=== PATIENT | male | born 1950 | race Caucasian/White ===

== ENCOUNTER → 2018-07-08 07:27 | Outpatient (CLI) | payer MEDICARE, MEDICAID ==
[2013-04-15 17:29] VITALS: BMI 27.0
[~2018-07-08 07:27] MED LIST: ASPIRIN 81 MG E81 MG PO; PLAVIX75 MG PO; PRAVACHOL40 MG PO; PRILOSEC20 MG
== END | disposition home or self-care (01) ==
LOC: D.CT 07:27
DX: R77.2 Abnormality of alphafetoprotein (principal)

== ENCOUNTER 2020-02-12 18:15 | Emergency (ER) | payer MEDICARE, MEDICAID ==
[~2020-02-12] VITALS: Ht 188 cm; Wt 90.9 kg
[2020-02-12 18:18] VITALS: Ht 188 cm; Wt 90.9 kg
[2020-02-12 18:48] LABS: BASOPHILS 0.2 % (0-2); EOSINOPHILS 0.3 % (0-7); HEMATOCRIT 42.6 % (42.0-54.0); HEMOGLOBIN 14.4 g/dL (13.5-17.5); IMMATURE GRANULOCYTES 0.2 % (0-5); LYMPHOCYTES 21.2 % (15-50); MCH 32.2 pg (26.0-34.0); MCHC 33.8 g/dL (31.0-37.0); MCV 95.3 fL (80.0-100.0); MEAN PLATELET VOLUME 9.2 fL (7.4-10.4); MONOCYTES 8.9 % (2-11); NEUTROPHILS 69.2 % (40-80); RBC 4.47 10x6/uL (4.20-6.10); RDW 12.6 % (11.5-14.5); WBC 11.6 10x3/uL (4.8-10.8)
[2020-02-12 18:53] LABS: APTT 26.5 SECONDS (22.8-39.4); INR 0.98 (0.85-1.17); PROTIME 12.9 SECONDS (11.6-15.0)
[2020-02-12 18:54] LABS: PLATELET COUNT 167 10x3/uL (130-400)
[2020-02-12 18:56] LABS: CALC OSMOLALITY 278 mosm/kg (275-300); CALCIUM 8.5 mg/dL (8.5-10.1); CARBON DIOXIDE 27.2 mmol/L (21.0-32.0); CHLORIDE - SERUM 104 mmol/L (98-107); CREATININE - SERUM 1.1 mg/dL (0.6-1.3); SODIUM 137 mmol/L (136-145); UREA NITROGEN 14 mg/dL (7-18); eGFR NON AFRICAN AMERICAN 71 mL/min (90-120)
[2020-02-12 19:01] LABS: GLUCOSE 175 mg/dL (74-106)
[2020-02-12 19:10] LABS: ALBUMIN 3.7 g/dL (3.4-5.0); ALKALINE PHOSPHATASE 58 U/L (30-120); ALT (SGPT) 27 U/L (10-68); CKMB 1.5 U/L (0.0-3.6); CREATINE KINASE 170 UL (21-232); LIPASE 164 U/L (73-393); MAGNESIUM - SERUM 2.1 mg/dL (1.8-2.4); PROTEIN - SERUM 6.9 g/dL (6.4-8.2); TROPONIN-I < 0.017 ng/mL (0.000-0.060)
[2020-02-12 20:31] LABS: CKMB 1.4 U/L (0.0-3.6)
[2020-02-12 20:42] LABS: TROPONIN-I < 0.017 ng/mL (0.000-0.060)
[2020-02-12] MEDS ORDERED: PROTONIX40 MG PO (20:45)
[2020-02-12 21:13] VITALS: BP 115/76
== END 2020-02-12 21:13 | disposition home or self-care (01) ==
LOC: D.ER 18:15
PROVIDERS: Emergency Medicine; Family Medicine
DX: K21.9 Gastro-esophageal reflux disease without esophagitis (principal); R07.9 Chest pain, unspecified; Z53.29 Procedure and treatment not carried out because of patient's decision for other reasons; I25.2 Old myocardial infarction